=== PATIENT | male | born 2000 | race Caucasian/White ===

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

== ENCOUNTER 2020-07-22 16:54 | Emergency (ER) | payer BC ==
[~2020-07-22] VITALS: Ht 182.8 cm; Wt 80.7 kg
[2020-07-22 17:31] LABS: HEMATOCRIT 39.2 % (42.0-52.0); MEAN CELL VOLUME 82.7 fl (80.0-94.0); MEAN CORPUSCULAR HGB 27.6 pg (27.0-31.0); MEAN CORPUSCULAR HGB CONC 33.4 g/dl (33.0-37.0); MEAN PLATELET VOLUME 9.7 fl (9.6-12.3); PLATELET COUNT AUTOMATED 246 10*3/uL (130-400); RED BLOOD COUNT 4.74 10*6/uL (4.50-5.90); RED CELL DISTRI WIDTH 13.2 % (0-14.5); WHITE BLOOD COUNT 18.6 10*3/uL (4.8-10.8)
[2020-07-22 17:47] LABS: ALBUMIN 3.9 gm/dl (3.1-4.5); ALKALINE PHOSPHATASE 125 U/L (45-117); BUN 16 mg/dl (7-24); CHLORIDE 110 mmol/L (98-107); CREATININE 1.25 mg/dL (0.70-1.30); POTASSIUM 3.9 mmol/L (3.5-5.1); SGOT/AST 44 IU/L (3-35); SGPT/ALT 38 U/L (12-78); SODIUM 136 mmol/L (136-145)
[2020-07-22 17:50] LABS: BASOPHILS 1 % (0-1); PLATELET SUFFICIENCY NORMAL (NORMAL); TOTAL CELLS COUNTED 100 #CELLS
[2020-07-22] MEDS ORDERED: CLINDAMYCIN HC300 MG PO (19:25)
[2020-07-22] MEDS ORDERED: PREDNISONE20 M1 PO (19:25)
== END 2020-07-22 19:35 | disposition home or self-care (01) ==
LOC: ED 16:54
PROVIDERS: Physician Assistant
DX: J36 Peritonsillar abscess (principal)

== ENCOUNTER 2020-08-13 10:47 | Emergency (ER) | payer BC ==
[~2020-08-13] VITALS: Ht 180.3 cm; Wt 80.7 kg
[~2020-08-13 10:47] MED LIST changes: +CLINDAMYCIN HC300 MG PO; +PREDNISONE20 M1 PO
== END 2020-08-13 11:23 | disposition home or self-care (01) ==
LOC: ED 10:47
DX: T65.91XA Toxic effect of unspecified substance, accidental (unintentional), initial encounter (principal); Z79.899 Other long term (current) drug therapy; Y92.89 Other specified places as the place of occurrence of the external cause

== ENCOUNTER 2020-10-20 09:34 | Emergency (ER) | payer BC | END 2020-10-20 11:29 | disposition home or self-care (01) | LOC: ED 09:34 | DX: S92.001A Unspecified fracture of right calcaneus, initial encounter for closed fracture (principal); X50.1XXA Overexertion from prolonged static or awkward postures, initial encounter; Y93.66 Activity, soccer; Y92.89 Other specified places as the place of occurrence of the external cause; Y99.8 Other external cause status ==

== ENCOUNTER 2023-01-20 09:21 | Emergency (ER) | payer BC ==
[~2023-01-20] VITALS: Ht 177.8 cm; Wt 89.8 kg
[2023-01-20] MEDS ORDERED: MUCINEX DM ER1 EACH PO (09:52)
[2023-01-20] MEDS ORDERED: ZITHROMAX250 MG PO (09:52)
[2023-01-20] MEDS ORDERED: Motrin,Rufen800 MG PO (09:52)
== END 2023-01-20 09:55 | disposition home or self-care (01) ==
LOC: ED 09:21
DX: J06.9 Acute upper respiratory infection, unspecified (principal)